=== PATIENT | female | born 1990 | race Two or more races ===

== ENCOUNTER 2017-08-07 20:00 | Emergency (ER) | payer MEDICAID ==
[~2017-08-07] VITALS: Ht 152.4 cm; Wt 74.8 kg
--- NOTE | 2017-08-07 20:13 | Emergency Room Report ---
History of Present Illness General Chief Complaint: Behavioral Complaint Source: Patient (René Medina) Present Illness HPI Patient is a 26-year-old female brought in by EMS with police after being placed on a 5150 hold. Patient apparently called a suicide hotline. She had prior history of bipolar disease. Patient is noted to have unknown medications. She denies taking any extra medications or any suicidal thoughts at this time. Patient states that she has long-standing history of depression she states she was diagnosed at age 7.Patient was noted to have called a suicide hotline per hold paperwork from [facility] patient was noted to have stated that she wanted to run into traffic and harm her self. (AdamRené) Allergies: Uncoded Allergies: UNK ANTI DEPRESSANT (Allergy, Unknown, 08/07/17) Patient History Past Medical History: see triage record Last Menstrual Period: last month Reviewed Nursing Documentation: PMH: Agreed, PSxH: Agreed (René Medina) Past Medical History: see triage record Reviewed Nursing Documentation: PMH: Agreed, PSxH: Agreed (DAVIS PAN Nursing Documentation-PM History Of Psychiatric Problem: Yes - DEPRESSION,ADHD,BIPOLAR (René Medina) Review of Systems All Other Systems: negative except mentioned in HPI (René Medina) Physical Exam Vital Signs Date Time Temp Pulse Resp B/P (MAP) Pulse Ox O2 Delivery O2 Flow Rate FiO2 08/07/17 19:54 98.4 100 16 117/82 100 Room Air 98.4 Sp02 EP Interpretation: reviewed, normal General Appearance: normal inspection, well appearing, no apparent distress, alert, GCS 15, non-toxic Head: atraumatic ENT: normal ENT inspection, hearing grossly normal, normal voice Neck: normal inspection, full range of motion, supple, no bony tend Respiratory: normal inspection, lungs clear, normal breath sounds, no respiratory distress, no retraction, no wheezing Cardiovascular #1: regular rate, rhythm, no edema Gastrointestinal: normal inspection, normal bowel sounds, non tender, soft, no guarding, no hernia Genitourinary: no CVA tenderness Musculoskeletal: normal inspection, back normal, normal range of motion Neurologic: normal inspection, alert, responsive, speech normal Psychiatric: other - intermittently agitated with pressured speech, denies SI or HI, intermittently hostile Skin: normal inspection, normal color, no rash (René Medina) Medical Decision Making Behavioral: Bipolar Disorder Reaction to Intervention: Improved (DAVIS PAN M.D) Diagnostic Impression: Primary Impression: Bipolar disorder (manic depression) Qualified Codes: F31.9 - Bipolar disorder, unspecified Additional Impression: UTI (urinary tract infection) Qualified Codes: N39.0 - Urinary tract infection, site not specified ER Course patient presented for psychosis. Differential diagnoses include substance abuse , psychosis, bipolar disorder, depression, malingering. Because of complexity of patient's case laboratory testing and imaging studies were ordered. Laboratory testing mild hypokalemia as well as evidence of urinary tract infection. Patient was noted to have been placed on a 5150 prior to arrival. Patient was noted to have a urine drug screen positive for amphetamines consistent with the patient's Vyvanse use. Patient was noted to be in the room with [employer]. Patient was given oral fluids which she tolerated well. Patient was discussed with [facility] who had placed the patient on a hold. Keflex as ordered for patient's urinary tract infection. Patient is medically cleared for psychiatric placement. Patient declined Zyprexa. Labs Test 08/07/17 20:45 White Blood Count 6.5 K/UL (4.8-10.8) Red Blood Count 4.86 M/UL (4.20-5.40) Hemoglobin 13.9 G/DL (12.0-16.0) Hematocrit 42.0 % (37.0-47.0) Mean Corpuscular Volume 86 FL (80-99) Mean Corpuscular Hemoglobin 28.6 PG (27.0-31.0) Mean Corpuscular Hemoglobin Concent 33.2 G/DL (32.0-36.0) Red Cell Distribution Width 11.6 % (11.6-14.8) Platelet Count 245 K/UL (150-450) Mean Platelet Volume 7.9 FL (6.5-10.1) Neutrophils (%) (Auto) 58.8 % (45.0-75.0) Lymphocytes (%) (Auto) 31.0 % (20.0-45.0) Monocytes (%) (Auto) 6.7 % (1.0-10.0) Eosinophils (%) (Auto) 1.5 % (0.0-3.0) Basophils (%) (Auto) 2.0 % (0.0-2.0) Urine Color Yellow Urine Appearance Slightly cloudy Urine pH 6 (4.5-8.0) Urine Specific [place] 1.020 (1.005-1.035) Urine Protein 2+ (NEGATIVE) Urine Glucose (UA) Negative (NEGATIVE) Urine Ketones 4+ (NEGATIVE) Urine Occult Blood 1+ (NEGATIVE) Urine Nitrite Negative (NEGATIVE) Urine Bilirubin Negative (NEGATIVE) Urine Urobilinogen Normal MG/DL (0.0-1.0) Urine Leukocyte Esterase 2+ (NEGATIVE) Urine RBC 2-4 /HPF (0 - 2) Urine WBC 5-10 /HPF (0 - 2) Urine Squamous Epithelial Cells Few /LPF (NONE/OCC) Urine Bacteria Moderate /HPF (NONE) Urine HCG, Qualitative Negative Sodium Level 137 MMOL/L (136-145) Potassium Level 3.0 MMOL/L (3.5-5.1) Chloride Level 103 MMOL/L (98-107) Carbon Dioxide Level 27 MMOL/L (21-32) Anion Gap 7 mmol/L (5-15) Blood Urea Nitrogen 11 mg/dL (7-18) Creatinine 0.8 MG/DL (0.55-1.30) Estimat Glomerular Filtration Rate > 60 mL/min (>60) Glucose Level 90 MG/DL (74-106) Calcium Level 9.2 MG/DL (8.5-10.1) Total Bilirubin 0.4 MG/DL (0.2-1.0) Aspartate Amino Transf (AST/SGOT) 20 U/L (15-37) Alanine Aminotransferase (ALT/SGPT) 19 U/L (12-78) Alkaline Phosphatase 63 U/L (46-116) Total Protein 8.0 G/DL (6.4-8.2) Albumin 4.2 G/DL (3.4-5.0) Globulin 3.8 g/dL Albumin/Globulin Ratio 1.1 (1.0-2.7) Salicylates Level 1.9 ug/mL (2.8-20) Urine Opiates Screen Negative (NEGATIVE) Acetaminophen Level < 2 MCG/ML (10-30) Urine Barbiturates Screen Negative (NEGATIVE) Phencyclidine (PCP) Screen Negative (NEGATIVE) Urine Amphetamines Screen Positive (NEGATIVE) Urine Benzodiazepines Screen Negative (NEGATIVE) Urine Cocaine Screen Negative (NEGATIVE) Urine Marijuana (THC) Screen Positive (NEGATIVE) Serum Alcohol < 3 mg/dL (René Medina) ER Course Hospital Course 26-year-old female presents ED for evaluation. Called suicide hotline Clinical course Patient initially seen and evaluated by Dr. Medina. Please see his note for full history and physical Labs-K 3.0, UA + bacteria, Utox + THC, + BZs Potassium repleted. Given Keflex. Given psych meds here. Patient is medically cleared and pending psychiatric evaluation. i. I feel this is a highly complex case requiring extensive working including EKG/Rhythm strip, Xray/CT/US, Blood/urine lab work, repeat exams while in ED, and administration of strong opiates/narcotics for pain control, admission to hospital or close patient follow up. Labs Test 08/07/17 20:45 White Blood Count 6.5 K/UL (4.8-10.8) Red Blood Count 4.86 M/UL (4.20-5.40) Hemoglobin 13.9 G/DL (12.0-16.0) Hematocrit 42.0 % (37.0-47.0) Mean Corpuscular Volume 86 FL (80-99) Mean Corpuscular Hemoglobin 28.6 PG (27.0-31.0) Mean Corpuscular Hemoglobin Concent 33.2 G/DL (32.0-36.0) Red Cell Distribution Width 11.6 % (11.6-14.8) Platelet Count 245 K/UL (150-450) Mean Platelet Volume 7.9 FL (6.5-10.1) Neutrophils (%) (Auto) 58.8 % (45.0-75.0) Lymphocytes (%) (Auto) 31.0 % (20.0-45.0) Monocytes (%) (Auto) 6.7 % (1.0-10.0) Eosinophils (%) (Auto) 1.5 % (0.0-3.0) Basophils (%) (Auto) 2.0 % (0.0-2.0) Urine Color Yellow Urine Appearance Slightly cloudy Urine pH 6 (4.5-8.0) Urine Specific [place] 1.020 (1.005-1.035) Urine Protein 2+ (NEGATIVE) Urine Glucose (UA) Negative (NEGATIVE) Urine Ketones 4+ (NEGATIVE) Urine Occult Blood 1+ (NEGATIVE) Urine Nitrite Negative (NEGATIVE) Urine Bilirubin Negative (NEGATIVE) Urine Urobilinogen Normal MG/DL (0.0-1.0) Urine Leukocyte Esterase 2+ (NEGATIVE) Urine RBC 2-4 /HPF (0 - 2) Urine WBC 5-10 /HPF (0 - 2) Urine Squamous Epithelial Cells Few /LPF (NONE/OCC) Urine Bacteria Moderate /HPF (NONE) Urine HCG, Qualitative Negative Sodium Level 137 MMOL/L (136-145) Potassium Level 3.0 MMOL/L (3.5-5.1) Chloride Level 103 MMOL/L (98-107) Carbon Dioxide Level 27 MMOL/L (21-32) Anion Gap 7 mmol/L (5-15) Blood Urea Nitrogen 11 mg/dL (7-18) Creatinine 0.8 MG/DL (0.55-1.30) Estimat Glomerular Filtration Rate > 60 mL/min (>60) Glucose Level 90 MG/DL (74-106) Calcium Level 9.2 MG/DL (8.5-10.1) Total Bilirubin 0.4 MG/DL (0.2-1.0) Aspartate Amino Transf (AST/SGOT) 20 U/L (15-37) Alanine Aminotransferase (ALT/SGPT) 19 U/L (12-78) Alkaline Phosphatase 63 U/L (46-116) Total Protein 8.0 G/DL (6.4-8.2) Albumin 4.2 G/DL (3.4-5.0) Globulin 3.8 g/dL Albumin/Globulin Ratio 1.1 (1.0-2.7) Salicylates Level 1.9 ug/mL (2.8-20) Urine Opiates Screen Negative (NEGATIVE) Acetaminophen Level < 2 MCG/ML (10-30) Urine Barbiturates Screen Negative (NEGATIVE) Phencyclidine (PCP) Screen Negative (NEGATIVE) Urine Amphetamines Screen Positive (NEGATIVE) Urine Benzodiazepines Screen Negative (NEGATIVE) Urine Cocaine Screen Negative (NEGATIVE) Urine Marijuana (THC) Screen Positive (NEGATIVE) Serum Alcohol < 3 mg/dL (ZEHRA GARCIA M.D.) Last Vital Signs Date Time Temp Pulse Resp B/P (MAP) Pulse Ox O2 Delivery O2 Flow Rate FiO2 08/07/17 19:54 98.4 100 16 117/82 100 Room Air 98.4 Status: unchanged (René Medina) Status: improved (ZEHRA GARCIA M.D.) Reevaluation Time: 15:30 Status: improved Reevaluation Impression Dr. Norris, came to see patient, is confident that patient is not suicidal or severely disorganized, but recs to start abilify and stop vyvanse. (DAVIS PAN M.D) Disposition: HOME, SELF-CARE Condition: Stable Physician Consult: Dr. Norris, recs for d/c home (DAVIS PAN M.D) Scripts Nitrofurantoin Monohyd/M-Cryst* (MACROBID 100 MG*) 100 Mg Capsule 100 MG ORAL EVERY 12 HOURS for 7 Days, CAP Prov: DAVIS PAN M.D 08/08/17 Aripiprazole* (ABILIFY*) 10 Mg Tablet 10 MG ORAL DAILY, #30 TAB Prov: DAVIS PAN M.D 08/08/17 Patient Instructions: Self-Destructive Behavior Additional Instructions: stop taking vyvanse, and to start abilify 10mg qam x 30d and f/u with primary psychiatrist René Medina Aug 07, 2017 20:13 ZEHRA GARCIA M.D. Aug 08, 2017 03:13 DAVIS PAN M.D Aug 08, 2017 15:33
[2017-08-07 20:56] LABS: EOSINOPHILS % (AUTO) 1.5 % (0.0-3.0); HEMOGLOBIN 13.9 G/DL (12.0-16.0); MEAN CORPUSCULAR VOLUME 86 FL (80-99); MONOCYTES % (AUTO) 6.7 % (1.0-10.0); NEUTROPHILS % (AUTO) 58.8 % (45.0-75.0); PLATELET COUNT 245 K/UL (150-450); RED BLOOD COUNT 4.86 M/UL (4.20-5.40); RED CELL DISTRIBUTION WIDTH 11.6 % (11.6-14.8); WHITE BLOOD COUNT 6.5 K/UL (4.8-10.8)
[2017-08-07 21:02] LABS: APPEARANCE,URINE SLIGHTLY CLOUDY; BILIRUBIN, URINE NEGATIVE (NEGATIVE); GLUCOSE, URINE (UA) NEGATIVE (NEGATIVE); KETONES,URINE 4+ (NEGATIVE); LEUKOCYTE ESTERASE ,URINE 2+ (NEGATIVE); NITRITE,URINE NEGATIVE (NEGATIVE); PH,URINE 6 (4.5-8.0); PROTEIN,URINE 2+ (NEGATIVE); UROBILINOGEN,URINE NORMAL MG/DL (0.0-1.0)
[2017-08-07 21:06] LABS: COLOR,URINE YELLOW
[2017-08-07 21:15] LABS: ANION GAP 7 mmol/L (5-15); BLOOD UREA NITROGEN 11 mg/dL (7-18); CALCIUM 9.2 MG/DL (8.5-10.1); CARBON DIOXIDE 27 MMOL/L (21-32); CHLORIDE 103 MMOL/L (98-107); CREATININE 0.8 MG/DL (0.55-1.30); SODIUM 137 MMOL/L (136-145)
[2017-08-07 21:20] LABS: ALANINE AMINOTRANSFERASE 19 U/L (12-78); ALBUMIN 4.2 G/DL (3.4-5.0); ALBUMIN/GLOBULIN RATIO 1.1 (1.0-2.7); ALKALINE PHOSPHATASE 63 U/L (46-116); ASPARTATE AMINO TRANSFERASE 20 U/L (15-37); BILIRUBIN,TOTAL 0.4 MG/DL (0.2-1.0)
[2017-08-07] MEDS ORDERED: OXcarbazepine 150mg tab ORAL ONE (23:00)
[2017-08-07] MEDS ORDERED: Cephalexin 500mg cap ORAL ONE (23:00)
[2017-08-08 01:30] VITALS: BP 120/80
[2017-08-08] MEDS ORDERED: LORazepam 1mg tab ORAL ONE (02:30)
[2017-08-08 09:46] VITALS: BP 135/75
[2017-08-08] MEDS ORDERED: ABILIFY10 MG ORAL (15:38)
[2017-08-08] MEDS ORDERED: NITROFURANTOIN100 M2 ORAL (15:39)
[2017-08-08 16:01] VITALS: BP 135/75
--- NOTE | 2017-08-10 23:35 | Consultation ---
History of Present Illness General Date patient seen: Aug 08, 2017 Chief Complaint: Behavioral Complaint Present Illness HPI 26-year-old female brought in by EMS with police after being placed on a 5150 hold. the pt is not suicidal she stated that she was never suicidal she was just upset. she stopped her abilify and lack of refills. Allergies: Uncoded Allergies: UNK ANTI DEPRESSANT (Allergy, Unknown, 08/07/17) Medication History Scheduled Aripiprazole* (Abilify*), 10 MG ORAL DAILY Nitrofurantoin Monohyd/M-Cryst* (Macrobid 100 Mg*), 100 MG ORAL EVERY 12 HOURS Patient History Healthcare decision maker Resuscitation status Advanced Directive on File Physical Exam General Appearance: no apparent distress, alert, overweight Neurologic: alert, oriented x 3, responsive, normal mood/affect Height (Feet): 5 Weight (Pounds): 165 Assessment/Plan Status Narrative bipolar dc the hold start Jurgen Swartz M.D. Aug 10, 2017 23:35
== END 2017-08-08 16:13 | disposition home or self-care (01) ==
LOC: EDBD 20:00 → EMR 22:16
DX: F31.9 Bipolar disorder, unspecified (principal); N39.0 Urinary tract infection, site not specified; F90.9 Attention-deficit hyperactivity disorder, unspecified type
CPT/HCPCS: 36415; 80053; 80307; 80329; 81003; 81025; 85025; 87086; 99285; J8499